=== PATIENT | female | born 1940 | race Caucasian/White ===

== ENCOUNTER 2017-07-18 06:42 | Day surgery (SDC) | payer MEDICARE ==
[~2017-07-18] VITALS: Ht 162.6 cm; Wt 59.4 kg
[~2017-07-18 06:42] MED LIST: Triamterene W/1 EACH PO
== END 2017-07-18 23:05 | disposition home or self-care (01) ==
LOC: ORSCMMR 06:42 → ORD 08:30 → ORSCMMR 23:05
PROVIDERS: Surgery
PROC: B5161ZA Fluoroscopy of Right Subclavian Vein using Low Osmolar Contrast, Guidance (ICD-10-PCS; principal; 2017-07-18 08:30)
PROC: 05H533Z Insertion of Infusion Device into Right Subclavian Vein, Percutaneous Approach (ICD-10-PCS; principal; 2017-07-18 08:30)
DX: C48.2 Malignant neoplasm of peritoneum, unspecified (principal); I10 Essential (primary) hypertension; Z87.891 Personal history of nicotine dependence; Z79.899 Other long term (current) drug therapy
CPT/HCPCS: 77001; C1788; J0690; J1100; J1642; J2250; J2405; J3010; J7120

== ENCOUNTER → 2017-10-02 | Outpatient (CLI) | payer MEDICARE ==
[2017-10-03 11:01] LABS: Candida species (DNA Probe) Negative (NEGATIVE); G. vaginalis (DNA Probe) Positive (NEGATIVE); T. vaginalis (DNA Probe) Negative (NEGATIVE)
== END ==
LOC: LAB SHORT 14:53 → LAB 14:53
PROVIDERS: Obstetrics & Gynecology
DX: N76.0 Acute vaginitis (principal)
CPT/HCPCS: 87480; 87510; 87660

== ENCOUNTER 2018-10-09 13:01 | Day surgery (SDC) | payer MEDICARE ==
[~2018-10-09] VITALS: Ht 167.6 cm; Wt 58.6 kg
[~2018-10-09 13:01] MED LIST changes: +ASCO500 PO; +CHOL10002 PO; +Ginger250 MG PO; +MELATONIN5 M1 PO; +MULTI VITAMIN1 EACH PO
--- NOTE | 2018-10-09 14:25 | NUR ---
10/09/18 0299 Julianne Canales PT NOTIFIED OF POSSIBLE DELAY OF GOING INTO OR. AT BEDSIDE. CALL LIGHT WITHIN REACH. PREOP TEACHING COMPLETED.
== END 2018-10-09 16:58 | disposition home or self-care (01) ==
LOC: ORSCSDS 13:01
PROVIDERS: Surgery
PROC: 0HB0XZX Excision of Scalp Skin, External Approach, Diagnostic (ICD-10-PCS; principal; 2018-10-09 14:45)
DX: L72.11 Pilar cyst (principal); I10 Essential (primary) hypertension; Z87.891 Personal history of nicotine dependence; Z79.899 Other long term (current) drug therapy
CPT/HCPCS: 88304; J7120

== ENCOUNTER 2020-07-19 17:07 | Inpatient (IN) | payer MEDICARE ==
[~2020-07-19] VITALS: Ht 162.6 cm; Wt 67.8 kg
[~2020-07-19 17:07] MED LIST changes: -CHOL10002 PO; +VITAMIN D31000 UNI1 PO
[2020-07-19 18:08] LABS: BASOPHILS ABSOLUTE AUTO 0.02 K/mm3 (0.00-0.23); BASOPHILS PERCENT AUTO 0 % (0-2); Hematocrit 31.2 % (33.0-51.0); Hemoglobin 10.6 g/dL (11.5-16.0); Mean Corpuscular HGB 29.4 pg (26.0-34.0); Mean Corpuscular Volume 86 fL (80-100); Mean Platelet Volume 8.2 fL (9.1-12.4); Platelet Count 177 K/mm3 (150-400); RDW Coefficient Variation 14.1 % (11.7-14.2); RDW Standard Deviation 45.1 fL (35.1-46.3); Red Blood Cell Count 3.61 M/mm3 (3.80-5.20); White Blood Cell Count 5.36 K/mm3 (4.00-11.30)
[2020-07-19 18:11] LABS: EOSINOPHILS ABSOLUTE AUTO 0.02 K/mm3 (0.00-0.68); EOSINOPHILS PERCENT AUTO 0 % (0-6); IMMATURE GRAN ABSOLUTE AUTO 0.02 K/mm3 (0.00-0.10); IMMATURE GRAN PERCENT AUTO 0 % (0-1); LYMPHOCYTES ABSOLUTE AUTO 0.07 K/mm3 (0.84-5.20); LYMPHOCYTES PERCENT AUTO 1 % (21-46); MONOCYTES ABSOLUTE AUTO 0.05 K/mm3 (0.16-1.47); MONOCYTES PERCENT AUTO 1 % (4-13); NEUTROPHILS ABSOLUTE AUTO 5.18 K/mm3 (1.96-9.15); NEUTROPHILS PERCENT AUTO 97 % (41-73)
[2020-07-19 18:28] LABS: Albumin, Blood 2.2 g/dL (3.4-5.0); Albumin/Globulin Ratio 0.5 (0.8-1.8); Bilirubin, Total 0.6 mg/dL (0.1-1.0); Bun/Creatinine Ratio 29.8 (12.0-20.0); Calcium, Blood 8.1 mg/dL (8.5-10.1); Creatinine, Blood 2.38 mg/dL (0.40-1.00); Globulin, Blood 4.8 g/dL (2.2-4.0); Potassium, Blood 4.5 mmol/L (3.5-5.5); Troponin I 0.142 ng/mL (0.000-0.040)
[2020-07-19 18:36] LABS: BAND PERCENT MAN 4 % (0-8); BASOPHILS PERCENT MAN 0 % (0-2); EOSINOPHILS ABSOLUTE MAN 0.05 K/mm3 (0.00-0.68); EOSINOPHILS PERCENT MAN 1 % (0-6); LYMPHOCYTES PERCENT MAN 2 % (21-46); METAMYELOCYTE ABSOLUTE MAN 0.05 K/mm3 (0.00-0.00); METAMYELOCYTE PERCENT MAN 1 % (0-0); MONOCYTES ABSOLUTE MAN 0.05 K/mm3 (0.16-1.47); MONOCYTES PERCENT MAN 1 % (4-13); NEUTROPHILS ABSOLUTE MAN 5.09 K/mm3 (1.96-9.15); SEG NEUTROPHILS PERCENT MAN 91 % (41-73); TOTAL CELLS COUNTED 100
[2020-07-19] MEDS ORDERED: TRIA50 PO (19:23)
[2020-07-19] MEDS ORDERED: Norco 5-325 Ta1 EACH PO (19:24)
[2020-07-19] MEDS ORDERED: CYCLOPHOSPHAMID50 MG PO ×2 (20:21→21:07)
[2020-07-19] MEDS ORDERED: DYAZIDE 37.5-21 EACH PO (20:22)
[2020-07-19] MEDS ORDERED: Potassium Chlo20 ME1 PO (20:22)
[2020-07-19] MEDS ORDERED: FUROSEMIDE20 MG PO (20:22)
[2020-07-19 20:47] LABS: Source, Urine Clean Catch
[2020-07-19 20:50] LABS: Appearance, Urine Hazy (Clear); Bilirubin, Urine Neg (Neg); Blood, Urine 2+ (Neg); Color, Urine Yellow (P-Yellow); Glucose Qualitative, Urine Neg (Neg); Ketones, Urine 1+ (Neg); Leukocyte Esterase, Urine 1+ (Neg); Nitrite, Urine Neg (Neg); Protein, Urine 2+ (Neg); Urobilinogen, Urine NORM (Normal)
[2020-07-19 21:05] LABS: Amorphous Light (0-Heavy); Bacteria Many /hpf
[2020-07-19 21:06] LABS: Red Blood Cells, Urine 0-2 /hpf (0-2); Squamous Epithelial Cells Rare /hpf (Few)
--- NOTE | 2020-07-19 22:19 | NUR ---
ADMIT ARRIVED TO RM [id number] @2200 ,SLIDE TRANSFER TO NEW BED. ORIENTED TO & CALL LIGHT, WILL MONITOR.
[2020-07-20 00:10] LABS: Influenza A, PCR NEGATIVE (NEGATIVE); Influenza B, PCR NEGATIVE (NEGATIVE); Resp Syncytial Virus, PCR NEGATIVE (NEGATIVE); SARS-Cov-2 (COVID-19) PCR, MMC NEGATIVE (NEGATIVE)
[2020-07-20 00:28] LABS: Thyroid Stimulating Hormone 4.37 uIU/mL (0.360-4.800)
[2020-07-20 04:58] LABS: BASOPHILS ABSOLUTE AUTO 0.01 K/mm3 (0.00-0.23); BASOPHILS PERCENT AUTO 0 % (0-2); Hematocrit 25.4 % (33.0-51.0); Hemoglobin 8.4 g/dL (11.5-16.0); Mean Corpuscular HGB 29.4 pg (26.0-34.0); Mean Corpuscular HGB Conc 33.1 g/dL (31.5-36.5); Mean Corpuscular Volume 89 fL (80-100); Mean Platelet Volume 8.3 fL (9.1-12.4); Platelet Count 114 K/mm3 (150-400); RDW Coefficient Variation 14.2 % (11.7-14.2); RDW Standard Deviation 46.3 fL (35.1-46.3); Red Blood Cell Count 2.86 M/mm3 (3.80-5.20); White Blood Cell Count 4.74 K/mm3 (4.00-11.30)
[2020-07-20 04:59] LABS: EOSINOPHILS PERCENT AUTO 0 % (0-6); IMMATURE GRAN ABSOLUTE AUTO 0.04 K/mm3 (0.00-0.10); IMMATURE GRAN PERCENT AUTO 1 % (0-1); LYMPHOCYTES ABSOLUTE AUTO 0.03 K/mm3 (0.84-5.20); LYMPHOCYTES PERCENT AUTO 1 % (21-46); MONOCYTES ABSOLUTE AUTO 0.05 K/mm3 (0.16-1.47); MONOCYTES PERCENT AUTO 1 % (4-13); NEUTROPHILS ABSOLUTE AUTO 4.61 K/mm3 (1.96-9.15); NEUTROPHILS PERCENT AUTO 97 % (41-73)
[2020-07-20 05:25] LABS: Calcium, Blood 7.1 mg/dL (8.5-10.1); Creatinine, Blood 2.28 mg/dL (0.40-1.00); Potassium, Blood 4.6 mmol/L (3.5-5.5); Troponin I 0.194 ng/mL (0.000-0.040)
--- NOTE | 2020-07-20 07:25 | NUR ---
SHIFT SUMMARY AOX4. [place]. ABLE TO ANSWER QUESTIONS & FOLLOW DIRECTIONS CORRECTLY. VSS. TELE ST 105. PLAN TO HAVE ECHO TODAY 07/20/20 FOR NEW ONSET AFIB IN ER LAST NIGHT & INCREASED TROPONINS, LAST TROP 0.227 & 0.194. HAS 2+ EDEMA BLE & DEPENDENT EDEMA ABD/SIDES/ALLOVER BODY. REPORTS 7/10 MUSCLE PAIN ALLOVER BODY, DENIES NEED FOR PAIN MEDICATION. MEDICATED c MAGNESIUM CITRATE FOR CONSTIPATION NO BM OVER 1 WK, HAD MEDIUM FIRM & LIQUID MIX BROWN BM. ABD TENDER TO PALPATION LLQ. ACTIVE BT. MEDICATED 1X c ZOFRAN FOR NAUSEA. STATES LACK OF APPETITE & HASN'T BEEN EATING RECENTLY. REPORTS INCREASED WEAKNESS OVER LAST WK, STATES SHE HAS BEEN UNABLE TO GET OOB ON OWN & NORMALLY CAN WALK INDEPENDENTLY. HX OVARIAN CA, PT RECIEVING CHEMO, STATES SHE IS SUPPOSE TO HAVE CHEMO TODAY 07/20/20-CALLED CONSULT TO DR MARIN ANSWER SERVICE. CALL LIGHT IN REACH & BED ALARM ON FOR SAFETY SINCE PT REPORTED FALLING @HOME.
--- NOTE | 2020-07-20 08:33 | NUR ---
TALKED TO ABOUT B.P. AND HEART RATE.B.P. IN 90'S -. HEART RATE WAS 160 AFIB SUSTAINED THAN DROPPED TO SR 80'S THEN NOW 130'S ST W/PVC'S. MD TO MOVE PATIENT WITH CLOSER MONITORING. VENTILATING ENGINEER NOTIFIED. AWAITING ORDERS
--- NOTE | 2020-07-20 11:38 | NUR ---
Exchocardiogram performed.
--- NOTE | 2020-07-20 17:02 | NUR ---
ACCIDENTLY CALLED DR.IBRAHIM MARTINEZ THIS MORNING FOR CADIOLOGY CONSULT. WHEN DR. MARTINEZ CALLED BACK HE STS HE IS NOT [employer] PRESIDENT. CALLED WHO WAS FOUNDER CEO & PRESIDENT AND HIS OFFICE CALLED BACK AND STS IS NOW FOUNDER CEO & PRESIDENT. CALLED OFFICE AND THE CALL BACK WAS THAT HE IS TOO BUSY. NOTIFIED AND SHE STS NOT NEEDED AT THIS TIME AND SHE WILL CANCEL CONSULT ORDER.
--- NOTE | 2020-07-20 17:17 | NUR ---
ALERT. ORIENTED. CARDIOLOGY CONSULT CANCELLED BY . PER PCU TECH HEART RATE HAS BEEN SR IN 90'S SINCE EARLY THIS A.M. AFTER IT FLUCTUATED ( SEE PREVIOUS NOTE). WAS ABLE TO HOLD ABOUT 1/2 ENEMA WITH VERY LITTLE RESULTS. WAS IN TO CONSULT. HAS DENIED NEED FOR PAIN MEDS. WCTM
--- NOTE | 2020-07-20 17:52 | NUR ---
IN ROOM AND DISCUSSED PATIENTS WISHES.
--- NOTE | 2020-07-21 06:10 | NUR ---
SHIFT SUMMARY AOX4. [place]. VSS. HAS +2 PITTING EDEMA BLE & EDEMA SCATTERED T/O BODY. REFUSED HS HEPARIN INJECTION, STATED SHE THOUGHT "DR WAS GOING TO STOP" SINCE PT WANTS TO GO HOME ON HOSPICE. REPORTS 6/10 LOW BACK PAIN, MEDICATED 1X c NORCO. NO SIGNIFICANT BM TONIGHT, REPORTS SHE "FEELS THE URGE BUT CAN'T GO" HOWEVER DENIES ANY BOWEL CARE MEDS & STATES "THEY DON'T WORK". EDUCATED ABOUT PAIN MEDS INCREASING CHANCES OF CONSTIPATION, PT STATED SHE WAS AWARE. CHANGED PRN. CALL LIGHT IN REACH & PT ABLE TO MAKE NEEDS KNOWN.
--- NOTE | 2020-07-21 15:40 | NUR ---
PT IS A/OX3, COOPERATIVE, THE PT SEEMS WITHDRAWN/DEPRESSED TODAY, PT APPEARS TO BE BREATHING EASILY ON RA, THE PT IS UP WITH MODERATE ASSIST DUE TO WEAKNESS, THE PT WAS MEDICATED FOR NAUSEA AND PAIN X1 TODAY SO FAR, THE PT HAD FAMILY IN TO SEE HER TODAY, PLAN IS FOR THE PT TO DC HOME TOMMOROW WITH HOSPICE CARE, GENERAL DENTIST/OWNER IS WITH THE PT AT THIS TIME, CALL LIGHT IN REACH, WILL CONTINUE TO MONITOR AND ASSESS FOR CHANGES
--- NOTE | 2020-07-21 16:51 | NUR ---
ADMIT: 07/19/20 DISCHARGE: 07/22/20 DX: Acute kidney Failure CC: cpeabody TOÑO CALL: Met with Estephania and RAGHU Warner, call Sotero for toño. RESIDENCE: home CAREGIVER: Sotero Gale, Spouse / Partner, DX: CKD-stage 3, HTN, pulmonary emphysema, see list DME: Ordering wheelchair and commode from Hospice CCM: none HOME HEALTH: [facility] to start 07/22/20 SUMMARY: Admit: 07/19/20 07/21/[address] Kingsley, Hospice services Met with Estephania and her RAGHU Warner, discussed hospice services, and chose [facility]. [facility] reviewed and accepted her to service for . Documents signed and given to Abigail, Pad prescriptions given to family to fill for discharge. DME should arrive tomorrow. Discussed [place] will not need a follow up appointment but we are still available for non-hospice problems. Will see her off tomorrow before discharge. cp
--- NOTE | 2020-07-22 04:39 | NUR ---
SHIFT SUMMARY ASSUMED CARE OF PT AT 1900. PT IS A/OX4. HEART SOUNDS REGULAR, LUNG SOUNDS CLEAR. PT DENIES PAIN. PT WAS INCONTINENT DURING THE NIGHT. PT HAS NO NEW COMPLAINTS. CALL LIGHT IN REACH, BED IN LOWEST POSITON.
--- NOTE | 2020-07-22 10:53 | NUR ---
DISCHARGE SUMMARY PT DISCHARGE TODAY VIA W/C TRANSPORT. DISCHARGE TO HOME WITH HOSPICE SERVICES. NO ACUTE CHANGES NOTED TO PATIENT PRIOR TO DISCHARGE. NO COMPLAINTS OR ANY ISSUES NOTED DURING DISCHARGE PROCESS. PT VERBALIZED UNDERSTANDING OF DISCHARGE INSTRUCTIONS/ORDERS. DISCHARGE PAPERWORK GIVEN TO PATIENT.
--- NOTE | 2020-07-22 17:06 | NUR ---
ADMIT: 07/19/20 DISCHARGE: 07/22/20 DX: Acute kidney Failure CC: cpeabody TOÑO CALL: Met with Estephania and RAGHU Warner, call Sotero for toño. NO follow up appt. RESIDENCE: home CAREGIVER: Sotero Gale, Spouse / Partner, DX: CKD-stage 3, HTN, pulmonary emphysema, see list DME: Ordering wheelchair and commode from Hospice CCM: none HOME HEALTH: [facility] to start 07/22/20 SUMMARY: Admit: 07/19/20 07/22/20 discharged home today by wheelchair transport. Discussed [place] follow up call on Sunday or Sunday. [facility] services to start today. no follow up appointment needed at [facility]. cp 07/21/[address] Kingsley, Hospice services Met with Estephania and her RAGHU Warner, discussed hospice services, chose [facility]. [facility] reviewed and accepted her to service for . Documents signed and given to Abigail, Pad prescriptions given to family to fill for discharge. DME should arrive tomorrow. Discussed [place] will not need a follow up appointment but we are still available for non hospice problems. Will see her off tomorrow before discharge. cp
== END 2020-07-22 10:50 | disposition hospice, home (50) | DRG 682 ==
LOC: ER 17:07 → MEDS 17:08
PROVIDERS: Physician Assistant; ADMIT Family Medicine
DX: N17.9 Acute kidney failure, unspecified (principal); I50.31 Acute diastolic (congestive) heart failure; E87.1 Hypo-osmolality and hyponatremia; C56.1 Malignant neoplasm of right ovary; R18.0 Malignant ascites; I24.8 Other forms of acute ischemic heart disease; Z66 Do not resuscitate; Z51.5 Encounter for palliative care; N39.0 Urinary tract infection, site not specified; E86.0 Dehydration; Z20.822 Contact with and (suspected) exposure to COVID-19; D64.9 Anemia, unspecified; R77.9 Abnormality of plasma protein, unspecified; I48.0 Paroxysmal atrial fibrillation; M41.9 Scoliosis, unspecified; M54.9 Dorsalgia, unspecified; D69.6 Thrombocytopenia, unspecified; I11.0 Hypertensive heart disease with heart failure; G89.29 Other chronic pain; N13.30 Unspecified hydronephrosis; K59.03 Drug induced constipation; T40.2X5A Adverse effect of other opioids, initial encounter; M19.042 Primary osteoarthritis, left hand; M19.041 Primary osteoarthritis, right hand; R29.6 Repeated falls; Z79.899 Other long term (current) drug therapy; Z88.1 Allergy status to other antibiotic agents; Z98.890 Other specified postprocedural states; Z90.710 Acquired absence of both cervix and uterus; Z87.891 Personal history of nicotine dependence; Z92.21 Personal history of antineoplastic chemotherapy; X58.XXXA Exposure to other specified factors, initial encounter
CPT/HCPCS: 0241U; 36415; 71046; 74018; 76770; 80048; 80053; 81001; 82550; 83605; 83735; 83880; 84145; 84443; 84484; 85025; 87040; 87086; 93005; 93010; 93308; 93321; 93356; 96372; 96374; 96375; 96376; 97165; 97530; 97535; 99285-25; A9270; G0378; J0456; J0696; J1160; J1644; J2405; J7030; J7050